=== PATIENT | male | born 1940 | race Caucasian/White ===

== ENCOUNTER 2017-08-06 11:50 | Emergency (ER) | payer MEDICARE ==
[2017-08-06 13:41] LABS: #Eosinphils 0.1 thou/uL (0.0-0.7); #Lymphocytes 1.7 thou/uL (1.20-3.40); #Monocytes 0.4 thou/uL (0.11-0.59); #Neutrophils 2.6 thou/uL (1.40-6.50); %Basophils 0.3 % (0.0-1.0); %Eosinophils 1.6 % (0.0-10.0); %Lymphocytes 35.3 % (21.0-51.0); %Monocytes 9.1 % (0.0-10.0); %Neutrophils 53.7 % (42.0-75.0); Hemoglobin 16.6 g/dL (14.0-18.0); Mean Corpuscular HGB CONC 33.4 g/dL (32.0-36.0); Mean Corpuscular Hemoglobin 31.8 pg (27.0-31.0); Mean Corpuscular Volume 95.5 fl (80.0-94.0); Mean Platelet Volume 6.8 fL (7.4-10.4); Platelet Count 178 thou/uL (130-400); Red Blood Cell (RBC) Count 5.21 mill/uL (4.70-6.10); White Blood Cell (WBC) Count 4.8 thou/uL (4.8-10.8)
--- NOTE | 2017-08-06 13:44 | ULT ---
RIGHT LOWER EXTREMITY VENOUS ULTRASOUND WITH DOPPLER: Date: 08/06/17 HISTORY: Right lower extremity pain and edema. COMPARISON: None. TECHNIQUE: Mcleod scale, color flow, Doppler imaging, and spectral waveform analysis performed of the right lower extremity venous system. FINDINGS: There is compressibility, presence of flow, and augmentation in the common femoral vein, femoral vein , and popliteal vein. There is flow in the greater saphenous vein, profunda vein, and posterior tibia l vein. There is a mild amount of edema involving the soft tissues at the level of the ankle. IMPRESSION: 1. No evidence of thrombus in the right lower extremity deep venous system. 2. Soft tissue edema. POS: [facility]
[2017-08-06 13:49] LABS: Anion Gap 15 mmol/L (10-20); BUN (Urea Nitrogen) 15 mg/dL (8.4-25.7); Calc. Creatinine Clearance 0 mL/min (70-130); Calcium 9.6 mg/dL (7.8-10.44); Carbon Dioxide 26 mmol/L (23-31); Chloride 101 mmol/L (98-107); Estimated GFR-MDRD 76; Glucose 133 mg/dL (83-110); Potassium 3.6 mmol/L (3.5-5.1); Sodium 138 mmol/L (136-145)
--- NOTE | 2017-08-17 15:51 | EKG ---
Test Reason : Blood Pressure : / mmHG Vent. Rate : 077 BPM Atrial Rate : 076 BPM P-R Int : 194 ms QRS Dur : 086 ms QT Int : 374 ms P-R-T Axes : 000 -13 202 degrees QTc Int : 423 ms Undetermined rhythm T wave abnormality, consider anterolateral ischemia Abnormal ECG Confirmed by MICHAEL MCKEON, AZEEM ([id number]), slot editor ABDIEL ROBB ([id number] on 08/17/2017 3:49:26 PM Referred By: Confirmed By:AZEEM RODRIGUEZ MD
== END 2017-08-06 14:58 | disposition home or self-care (01) ==
LOC: ERS 11:50
DX: L03.115 Cellulitis of right lower limb (principal); I25.2 Old myocardial infarction; E78.5 Hyperlipidemia, unspecified; I10 Essential (primary) hypertension; Z86.73 Personal history of transient ischemic attack (TIA), and cerebral infarction without residual deficits; F41.9 Anxiety disorder, unspecified
CPT/HCPCS: 80048; 85025; 85379; 93005

== ENCOUNTER 2017-12-23 08:52 | Outpatient (CLI) | payer MEDICARE ==
--- NOTE | 2017-12-23 10:29 | ULT ---
SONOGRAM RIGHT UPPER QUADRANT: History: Abnormal liver function tests. FINDINGS: Gallbladder is surgically absent. Common duct is 0.7 cm. Liver is heterogeneous without focal mass or intrahepatic biliary dilation. No free fluid. IMPRESSION: Status post cholecystectomy. No evidence of acute biliary obstruction. No significant abnormalities a re demonstrated. POS: [facility]
== END 2017-12-23 08:53 | disposition home or self-care (01) ==
LOC: SCSULT 08:52
PROVIDERS: ATTEND Family Medicine
DX: R74.8 Abnormal levels of other serum enzymes (principal); Z90.49 Acquired absence of other specified parts of digestive tract
CPT/HCPCS: 76705

== ENCOUNTER 2018-12-06 13:16 | Observation (INO) | payer MEDICARE ==
[2018-12-06] MEDS ORDERED: Nitroglycerin 2% Ointment 1 INCH/1 GM Packet ONE (13:45)
--- NOTE | 2018-12-06 13:50 | RAD ---
EXAM: Single view of the chest HISTORY: Chest pain COMPARISON: 06/05/2016 FINDINGS: Single view of the chest shows a normal sized cardiomediastinal silhouette. There is stabl e elevation of the right hemidiaphragm. There is no evidence of consolidation, mass, or pleural effusion. Degenerative changes are seen in the spine. IMPRESSION: No evidence of acute cardiopulmonary disease
[2018-12-06 13:52] LABS: #Eosinphils 0.1 thou/uL (0.0-0.7); #Lymphocytes 2.3 thou/uL (1.20-3.40); #Monocytes 0.5 thou/uL (0.11-0.59); %Basophils 0.5 % (0.0-1.0); %Eosinophils 1.9 % (0.0-10.0); %Monocytes 7.8 % (0.0-10.0); %Neutrophils 50.9 % (42.0-75.0); Hemoglobin 17.5 g/dL (14.0-18.0); Mean Corpuscular HGB CONC 33.5 g/dL (32.0-36.0); Mean Corpuscular Hemoglobin 32.4 pg (27.0-31.0); Mean Corpuscular Volume 96.8 fL (78.0-98.0); Mean Platelet Volume 6.6 fL (7.4-10.4); Platelet Count 182 thou/uL (130-400); RBC Distribution Width 12.7 % (11.5-14.5); Red Blood Cell (RBC) Count 5.38 mill/uL (4.70-6.10); White Blood Cell (WBC) Count 5.8 thou/uL (4.8-10.8)
[2018-12-06 14:15] LABS: ALT (SGPT) 17 U/L (8-55); AST (SGOT) 24 U/L (5-34); Albumin 4.3 g/dL (3.4-4.8); Alkaline Phosphatase 87 U/L (40-150); Anion Gap 15 mmol/L (10-20); BUN (Urea Nitrogen) 12 mg/dL (8.4-25.7); Bilirubin, Total 1.2 mg/dL (0.2-1.2); CK (CPK) 311 U/L (30-200); Calc. Creatinine Clearance 0 mL/min (70-130); Calcium 10.2 mg/dL (7.8-10.44); Carbon Dioxide 28 mmol/L (23-31); Chloride 97 mmol/L (98-107); Estimated GFR-MDRD 87; Globulin 3.5 g/dL (2.4-3.5); Glucose 113 mg/dL (83-110); Lipase 63 U/L (8-78); Potassium 3.3 mmol/L (3.5-5.1); Protein, Total 7.8 g/dL (5.8-8.1); Sodium 137 mmol/L (136-145)
--- NOTE | 2018-12-06 14:42 | PDOC.FPRHP ---
- History of Present Illness Chief Complaint: Chest pain History of Present Illness: This is a 78 yo male with a pmh of CAD with stents placed, HTN, HLD, CVA in 2018 , hypothyroidism who presents to the er with a cc of chest pain. He states the pain started earlier today when he was working and was relieved by nitro. He also took aspirin 325mg RESPOOLER. Pt states the pain was epigastic pain with out radiation. He states it is an ache. He rates it as a 5/10 and is currently relived by nitro. He denies SOB, diaphoresis, nausea, or vomiting. In regards to his elevated BP, he denies any headaches or changes in his vision. In regards to his CVA in 2018, he reports minimal residual issue. ED Course: Nitro paste Hydralazine 20 mg - Allergies/Adverse Reactions Allergies Allergy/AdvReac Type Severity Reaction Status Date / Time No Known Drug Allergies Allergy Verified 12/07/18 00:07 - Home Medications Medication Instructions Recorded Confirmed Type ALPRAZolam [Xanax] 1 mg PO BID 06/05/16 12/07/18 History Amlodipine Besylate [amLODIPine 10 mg PO DAILY 06/05/16 12/07/18 History Besylate] Hydrochlorothiazide 25 mg PO DAILY 06/05/16 12/06/18 History Hydrocodone Bit/Acetaminophen 1 tablet PO QID PRN 06/05/16 12/07/18 History [HYDROcodone Bit/Acetaminophen] Levothyroxine Sodium [Synthroid] 50 mcg PO DAILY 06/05/16 12/07/18 History Aspirin Chewable [Aspirin Chewable 81 mg PO QAM #30 tab 06/09/16 12/07/18 Rx Tablet] Atorvastatin Calcium [Lipitor] 40 mg PO HS #30 tab 06/10/16 12/06/18 Rx Carisoprodol 350 mg PO QID PRN 12/06/18 12/07/18 History Isosorbide Mononitrate [Imdur ER] 30 mg PO DAILY 12/06/18 12/07/18 History Omeprazole 40 mg PO DAILY 12/06/18 12/07/18 History Potassium Chloride [K-Dur] 20 meq PO DAILY 12/06/18 12/07/18 History Sertraline HCl 100 mg PO DAILY 12/06/18 12/06/18 History Tamsulosin HCl [Flomax] 0.4 mg PO HS 12/06/18 12/06/18 History hydrALAZINE [Apresoline] 50 mg PO TID 12/06/18 12/07/18 History Lisinopril [Zestril] 5 mg PO DAILY #30 tab 12/07/18 Rx - History PMHx:CAD, HTN, CVA PSHx: Endarterectomy, 3 stents placed in the past, appendecotmy, cholecystecotmy FHx: Non contributory Social: Denies MATILDA - Review of Systems General: denies: fever/chills, weight/appetite/sleep changes Eyes: denies: eye pain, vision changes ENT: denies: nasal congestion, rhinorrhea Respiratory: denies: cough, shortness of breath Cardiovascular: reports: chest pain. denies: palpitation, edema Gastrointestinal: reports: other (belching). denies: nausea, vomiting, diarrhea , constipation, abdominal pain Genitourinary: denies: incontinence, dysuria Skin: denies: rashes, lesions Musculoskeletal: reports: pain (low back pain, chronic) Neurological: denies: numbness, syncope Psychological: denies: anxiety, depression - Vital signs BP: 183/64 HR: 67 RR: 21 Tmax: 98.1 Pox: 97% on ra Wt: 76 kg - Physical Exam Constitutional: NAD, awake, alert and oriented, well developed HEENT: normocephalic and atraumatic, EOMI, MMM Neck: FROM, no JVD Chest: no-tender to palpation Heart: RRR, normal S1/S2, no murmurs/rubs/gallops, pulses present Lungs: CTAB, no respiratory distress, good air movement, no wheezing Abdomen: soft, non-tender, bowel sounds present, no masses/distention Musculoskeletal: normal structure, normal tone, ROM grossly normal Skin: no rash/lesions, good turgor Heme/Lymphatic: no unusual bruising or bleeding, no purpura Psychiatric: normal mood and affect, good judgment and insight, intact recent and remote memory FMR H&P: Results - Labs Result Diagrams: 12/06/18 13:42 12/07/18 05:52 Lab results: WBC 5.8 thou/uL (4.8-10.8) 12/06/18 13:42 Hgb 17.5 g/dL (14.0-18.0) 12/06/18 13:42 Hct 52.1 % (42.0-52.0) H 12/06/18 13:42 MCV 96.8 fL (78.0-98.0) 12/06/18 13:42 Plt Count 182 thou/uL (130-400) 12/06/18 13:42 Neutrophils % 50.9 % (42.0-75.0) 12/06/18 13:42 Sodium 137 mmol/L (136-145) 12/06/18 13:42 Potassium 3.3 mmol/L (3.5-5.1) L 12/06/18 13:42 Chloride 97 mmol/L (98-107) L 12/06/18 13:42 Carbon Dioxide 28 mmol/L (23-31) 12/06/18 13:42 BUN 12 mg/dL (8.4-25.7) 12/06/18 13:42 Creatinine 0.85 mg/dL (0.7-1.3) 12/06/18 13:42 Glucose 113 mg/dL (83-110) H 12/06/18 13:42 Calcium 10.2 mg/dL (7.8-10.44) 12/06/18 13:42 Total Bilirubin 1.2 mg/dL (0.2-1.2) 12/06/18 13:42 AST 24 U/L (5-34) 12/06/18 13:42 ALT 17 U/L (8-55) 12/06/18 13:42 Alkaline Phosphatase 87 U/L (40-150) 12/06/18 13:42 Creatine Kinase 311 U/L (30-200) H 12/06/18 13:42 Serum Total Protein 7.8 g/dL (5.8-8.1) 12/06/18 13:42 Albumin 4.3 g/dL (3.4-4.8) 12/06/18 13:42 Lipase 63 U/L (8-78) 12/06/18 13:42 - EKG Interpretation EKG: NSR, frequent PVCs, no st depression or elevation, HR 83 QT/QTc 396/465 - Radiology Interpretation Chest x-ray Status: report reviewed by me (No evidence of acute cardiopulmonary disease) FMR H&P: A/P - Problem List (1) Atypical chest pain Current Visit: Yes Status: Acute Code(s): R07.89 - OTHER CHEST PAIN (2) Hypertension Current Visit: No Status: Acute Code(s): I10 - ESSENTIAL (PRIMARY) HYPERTENSION Qualifiers: Hypertension type: essential hypertension Qualified Code(s): I10 - Essential (primary) hypertension (3) Anxiety disorder Current Visit: No Status: Chronic Code(s): F41.9 - ANXIETY DISORDER, UNSPECIFIED (4) Chronic back pain Current Visit: No Status: Chronic Code(s): M54.9 - DORSALGIA, UNSPECIFIED; G89.29 - OTHER CHRONIC PAIN (5) Hyperlipemia Current Visit: No Status: Chronic Code(s): E78.5 - HYPERLIPIDEMIA, UNSPECIFIED Qualifiers: Hyperlipidemia type: unspecified Qualified Code(s): E78.5 - Hyperlipidemia , unspecified (6) Hypothyroidism Current Visit: No Status: Chronic Code(s): E03.9 - HYPOTHYROIDISM, UNSPECIFIED - Plan This is a 78 yo male with a pmh of HTN, CAD s/p 3 stents, hypothyroidism, chronic back pain Atypical chest pain, ACS r/o, likely GERD -Admit to tele obs -Heart score of 5 -Nitro PRN -Negative troponin and CXR -Pending AM stress test and trended troponins HTN -Continue home meds -PRN hydralazine -Consider increasing home meds or adding lisinopril if uncontrolled -Consider adding coreg after stress test if needed Hypokalemia -Replace, monitor with AM BMP Hypothyroidism -Continue home meds -TSH 1.16 Chronic low back pain -Continue home meds CAD -Continue home statin -Continue ASA Code: Full Prophylaxis: SCDs Fluids: none Diet: HH, NPO at midnight Disposition: DC in 1-2 days PCP: Dr. Patton Addendum - Attending - Attending Attestation Date/Time: 12/07/18 2906 I personally evaluated the patient and discussed the management with Dr. Contreras yesterday afternoon. I agree with the History, Examination, Assessment and Plan documented above with any addition or exceptions noted below.
[2018-12-06] MEDS ORDERED: hydrALAZINE 20 MG/ML VIAL ONE (14:50)
[2018-12-06] MEDS ORDERED: ALPRAZolam 1 MG TAB PO PRN (16:45)
[2018-12-06 17:19] LABS: Troponin I Less than 0.010 ng/mL (< 0.028)
[2018-12-06] MEDS ORDERED: Ondansetron PF 4 MG/2 ML Vial IVP PRN (18:50)
[2018-12-06] MEDS ORDERED: Ondansetron ODT 4 MG TAB SL PRN (18:50)
[2018-12-06 19:01] VITALS: BMI 24.5
[2018-12-06] MEDS ORDERED: Acetaminophen 325 MG TAB PO PRN (19:34)
[2018-12-06] MEDS ORDERED: Nitroglycerin 0.4 MG TAB (25 Tab Bottle) PO PRN (19:34)
[2018-12-06] MEDS ORDERED: hydrALAZINE 20 MG/ML VIAL SLOW IVP PRN (19:34)
[2018-12-06] MEDS ORDERED: Ondansetron ODT 4 MG TAB PO PRN (19:34)
[2018-12-06] MEDS ORDERED: Potassium Chloride 20 MEQ TAB PO SCH (19:45)
[2018-12-06] MEDS: Famotidine 20 MG TAB PO SCH (20:20)
[2018-12-06] MEDS ORDERED: Atorvastatin Calcium 40 MG TAB PO SCH (21:00)
[2018-12-06] MEDS: HYDROcodone/Acetaminophen 10/325 mg Tablet PO PRN (22:13)
[2018-12-07] MEDS ORDERED: Levothyroxine Sodium 50 MCG TAB PO SCH (06:00)
[2018-12-07 06:20] LABS: Anion Gap 10 mmol/L (10-20); BUN (Urea Nitrogen) 11 mg/dL (8.4-25.7); Calc. Creatinine Clearance 87 mL/min (70-130); Calcium 9.8 mg/dL (7.8-10.44); Carbon Dioxide 29 mmol/L (23-31); Chloride 101 mmol/L (98-107); Estimated GFR-MDRD Greater than 90; Glucose 98 mg/dL (83-110); Potassium 3.6 mmol/L (3.5-5.1); Sodium 136 mmol/L (136-145)
--- NOTE | 2018-12-07 06:39 | PDOC.FM ---
- Subjective Subjective: No chest pain this morning. Pt denies other complaints. He is concerned how high his blood pressure has been. - Objective MAR Reviewed: Yes Vital Signs & Weight: Vital Signs (12 hours) Temp Pulse Resp BP BP Pulse Ox 12/07/18 04:00 98.1 F 56 L 17 178/84 H 93 L 12/07/18 00:09 62 138/70 12/06/18 23:09 98.0 F 90 16 192/88 H 96 Weight Weight 77.383 kg Result Diagrams: 12/06/18 13:42 12/07/18 05:52 Phys Exam - Physical Examination Constitutional: NAD HEENT: moist MMs Neck: no JVD Respiratory: no wheezing, clear to auscultation bilateral Cardiovascular: RRR, no significant murmur Gastrointestinal: soft, non-tender Musculoskeletal: no edema, pulses present Neurological: moves all 4 limbs Psychiatric: A&O x 3 Skin: cap refill <2 seconds Dx/Plan (1) Atypical chest pain Code(s): R07.89 - OTHER CHEST PAIN Status: Acute (2) Hypertension Code(s): I10 - ESSENTIAL (PRIMARY) HYPERTENSION Status: Acute Qualifiers: Hypertension type: essential hypertension Qualified Code(s): I10 - Essential (primary) hypertension (3) Anxiety disorder Code(s): F41.9 - ANXIETY DISORDER, UNSPECIFIED Status: Chronic (4) Chronic back pain Code(s): M54.9 - DORSALGIA, UNSPECIFIED; G89.29 - OTHER CHRONIC PAIN Status: Chronic (5) Hyperlipemia Code(s): E78.5 - HYPERLIPIDEMIA, UNSPECIFIED Status: Chronic Qualifiers: Hyperlipidemia type: unspecified Qualified Code(s): E78.5 - Hyperlipidemia , unspecified (6) Hypothyroidism Code(s): E03.9 - HYPOTHYROIDISM, UNSPECIFIED Status: Chronic - Plan Plan: This is a 78 yo male with a pmh of HTN, CAD s/p 3 stents, hypothyroidism, chronic back pain Atypical chest pain, ACS r/o, likely GERD -Admit to tele obs -Heart score of 5 -Nitro PRN -Negative troponins x 3 and CXR -Pending AM stress test HTN -Continue home meds -PRN hydralazine -Adding lisinopril, can be adjusted outpt Hypokalemia, resolved Hypothyroidism -Continue home meds -TSH 1.16 Chronic low back pain -Continue home meds CAD -Continue home statin -Continue ASA Addendum - Attending - Attending Attestation Date/Time: 12/07/18 1233 I personally evaluated the patient and discussed the management with Dr. Contreras. I agree with the History, Examination, Assessment and Plan documented above with any addition or exceptions noted below. Pt's chest pain is improved. Getting a stress test today to evaluate for ischemia.
[2018-12-07] MEDS: Potassium Chloride 20 MEQ TAB PO SCH ×2 (08:25→15:54)
[2018-12-07] MEDS: Famotidine 20 MG TAB PO SCH (08:26)
[2018-12-07] MEDS ORDERED: Amlodipine 10 MG TAB PO SCH (09:00)
[2018-12-07] MEDS ORDERED: Aspirin Chewable 81 MG TAB PO SCH (09:00)
[2018-12-07] MEDS ORDERED: Hydrochlorothiazide 25 MG TAB PO SCH ×2 (09:00→17:15)
[2018-12-07] MEDS ORDERED: Lisinopril 5 MG TAB PO SCH (09:00)
[2018-12-07] MEDS: HYDROcodone/Acetaminophen 10/325 mg Tablet PO PRN (12:04)
--- NOTE | 2018-12-07 12:10 | NM ---
RADIONUCLEOTIDE STRESS AND REST MYOCARDIAL PERFUSION SCAN WITH CT ATTENUATION CORRECTION AND SPECT IM AGING LEFT VENTRICULAR WALL MOTION EVALUATION AND EJECTION FRACTION. HISTORY: Chest pain. FINDINGS: Lexiscan protocol. Heterogeneous uptake of radiotracer throughout the left ventricular myoc ardium. Diaphragmatic attenuation. Thinning of the apex with possible small area of scar. No evidence of reversibility. QGS analysis of gated SPECT images shows global hypokinesis without focal wall motion abnormality. Ej ection fraction calculated at 38%. IMPRESSION: Probably normal myocardial perfusion scan showing no reliable evidence of ischemia. Global hypokinesis with depressed ejection fraction of 38%.
[2018-12-07] MEDS ORDERED: Regadenoson 0.4 MG/5 ML SYRINGE ONE (15:29)
[2018-12-07 15:46] VITALS: TEMP 98
--- NOTE | 2018-12-07 16:54 | CON ---
DATE OF CONSULTATION: REASON FOR CONSULTATION: Atypical chest pain and history of CAD. HISTORY OF PRESENT ILLNESS: Mr. Garza is a 78-year-old gentleman, who is a patient of Dr. Whiting. He recently presented with pain in his lower chest, upper abdomen. It was worse with deep breathe. It was dull in nature. No other ameliorating, exacerbating, or precipitating factors present. He states he took nitroglycerin without relief. He presented to the emergency room and was given a concoction of several medications. It slowly then dissipated. Again, he did state it was worse with taking a deep breathe. He has a previous history of underlying coronary artery disease with stents x3 placed in [place] in 2004. PAST MEDICAL HISTORY: 1. CAD. 2. CVA. 3. Hypertension. 4. Carotid endarterectomy. 5. Appendectomy. 6. Cholecystectomy. SOCIAL HISTORY: No current tobacco or alcohol use. FAMILY HISTORY: Negative. REVIEW OF SYSTEMS: A 10-point review of systems is reviewed as above, otherwise negative. PHYSICAL EXAMINATION: VITAL SIGNS: Blood pressure 160/73, pulse 56, temperature 98.3. GENERAL: Patient is a pleasant male, who is in no acute distress. The patient appears their stated age. NEUROLOGIC: The patient is alert and oriented x3 with no focal neurologic deficits. HEENT: Sclerae without icterus. Mouth has moist mucous membranes with normal pallor. NECK: No JVD. Carotid upstroke brisk. No bruits bilaterally. LUNGS: Clear to auscultation with unlabored respirations. BACK: No scoliosis or kyphosis. CARDIAC: Regular rate and rhythm with normal S1 and S2. No S3 or S4 noted. No significant rubs, murmurs, thrills, or gallops noted throughout the precordium. PMI is not displaced. There is no parasternal heave. ABDOMEN: Soft, nontender, nondistended. No peritoneal signs present. No hepatosplenomegaly. No abnormal striae. EXTREMITIES: 2+ femoral and 2+ dorsalis pedis pulses. No cyanosis, clubbing, or edema. SKIN: No gross abnormalities. PERTINENT LABORATORY DATA: Hemoglobin 17.5, hematocrit 52.1. CK troponin negative. Stress and rest myocardial perfusion study; no ischemia present. LVEF 38%. PVCs present during the study. IMPRESSION: 1. Atypical chest pain. 2. Coronary artery disease. 3. Status post stent placement. 4. Hypertension. RECOMMENDATIONS: Mr. Garza's recent stress study did not suggest significant ischemia. There were PVCs during the study, that likely underestimate his overall LVEF. I did discuss procedure, coronary angiography versus medical therapy. I would recommend medical therapy at this point. He agrees. He is not interested in proceeding with angio. I would recommend increasing amlodipine to 10 mg q.a.m. Continue aspirin, atorvastatin. We will also consider increasing lisinopril as an outpatient. Otherwise, once his blood pressure is controlled, would be okay from my standpoint to discharge home with close outpatient followup. Job ID: [id number]
[2018-12-07 17:10] VITALS: BP 138/67
[2018-12-08] MEDS ORDERED: Hydrochlorothiazide 25 MG TAB PO SCH (09:00)
--- NOTE | 2018-12-08 13:03 | DIS ---
DATE OF ADMISSION: 12/06/2018 DATE OF DISCHARGE: 12/07/2018 ADMITTING ATTENDING: Ish Forde MD DISCHARGE ATTENDING: Karina Nevarez MD RESIDENT: Oziel Contreras DO PROCEDURES: 1. Chest x-ray showing no evidence of acute cardiopulmonary disease. 2. Cardiac stress test: Probably normal myocardial perfusion scan with no reliable evidence of ischemia, global hypokinesis with ejection fraction of 38%. CONSULTS: Dr. Rehan Anderson, Cardiology. PRIMARY DIAGNOSES: 1. Chest pain related to gastroesophageal reflux disease. 2. Hypokalemia and hypothyroidism. SECONDARY DIAGNOSES: coronary artery disease. DISCHARGE MEDICATIONS: 1. Lisinopril 10 mg p.o. . 2. Amlodipine 10 mg p.o. daily. 3. Aspirin 81 mg p.o. daily. 4. Atorvastatin 40 mg p.o. at bedtime. 5. Carisoprodol 350 mg p.o. q.i.d. 6. . 7. Hydrochlorothiazide 25 mg p.o. daily. 8. [place] 10 one tablet p.o. q.i.d. 9. Isosorbide mononitrate 10 mg p.o. daily. 10. Levothyroxine 50 mcg p.o. daily. 11. Omeprazole 40 mg p.o. daily. 12. . DISCONTINUED MEDICATIONS: None. BRIEF HISTORY OF PRESENT ILLNESS/HOSPITAL COURSE: This is a 78-year-old male with past medical history as above, who presents with chest pain. States the pain started earlier today when he was working and was relieved with nitro. The patient states that the pain is epigastric without radiation, describes it as an ache, states it is a 5/10 and is currently relieved by nitroglycerin. He denies shortness of breath . The patient was admitted to the hospital. Troponins were trended and found to be negative x3 performed as stated above. Given the global hypokinesia, Cardiology was consulted. Discussed the case with Dr. Rehan Anderson. The patient reported multiple PVCs during the stress test, obscuring the healthy function. Dr. Anderson reports the patient will be free to go if the blood pressure is controlled with further evaluation if needed. The patient's blood pressure was well controlled on admission later on. The patient required multiple doses of hydralazine IV in order to control this. Lisinopril 5 mg p.o. daily was added and hydrochlorothiazide was made b.i.d. prior to discharge. DISPOSITION: Stable. DISCHARGE INSTRUCTIONS: 1. Location: Home. 2. Diet: Heart healthy. 3. Activity: As tolerated. 4. Followup: Followup with Dr. Anderson in in 1 to 2 weeks. Job ID: [id number]
== END 2018-12-07 19:51 | disposition home or self-care (01) ==
LOC: ERS 13:16 → ERHOLD 15:03 → 2SW 18:51
PROVIDERS: ADMIT Family Medicine; ATTEND Family Medicine
DX: R07.89 Other chest pain (principal); I25.10 Atherosclerotic heart disease of native coronary artery without angina pectoris; E78.5 Hyperlipidemia, unspecified; I10 Essential (primary) hypertension; E03.9 Hypothyroidism, unspecified; F41.9 Anxiety disorder, unspecified; G89.29 Other chronic pain; M54.5 Low back pain; E87.6 Hypokalemia; I25.2 Old myocardial infarction; F32.9 Major depressive disorder, single episode, unspecified; Z86.73 Personal history of transient ischemic attack (TIA), and cerebral infarction without residual deficits; Z79.82 Long term (current) use of aspirin; Z79.899 Other long term (current) drug therapy; Z95.5 Presence of coronary angioplasty implant and graft; Z98.890 Other specified postprocedural states
CPT/HCPCS: 71045; 78452; 80048; 82550; 83690; 84484 ×2; 93005; 93017; 94760 ×2; 96374; 96376; 97139; 99285; A9500; G0378 ×3; 36415; 80053; 84443; 85025; J0360; J2785

== ENCOUNTER 2019-05-23 13:24 | Outpatient (CLI) | payer MEDICARE ==
--- NOTE | 2019-05-23 13:53 | ULT ---
THYROID ULTRASOUND: HISTORY: Thyroid nodule. COMPARISON: None. FINDINGS: Thyroid isthmus measures 0.35 cm. Right thyroid lobe measures 1.5 x 4.4 x 1.7 cm. Left thyroid lobe measures 1.2 x 4.6 x 1.3 cm. Complex nodule in the upper pole of the right thyroid lobe measures 0.4 x 0.5 x 0.6 cm. Peripherally calcified nodule in the mid pole of the right thyroid lobe measures 0.4 x 0.4 x 0.5 cm. Solid nodule in the inferior aspect of the right thyroid lobe, near the thyroid isthmus, measures 1.1 x 0.7 x 1.0 cm. Solid nodule in the medial mid left thyroid lobe measures 0.4 x 0.3 x 0.5 cm. IMPRESSION: TI-RADS category4, moderately suspicious. RECOMMENDATION: Follow-up imaging in one year. Transcribed Date/Time: 05/23/2019 2:28 PM
== END 2019-05-23 13:25 | disposition home or self-care (01) ==
LOC: BICULT 13:24
PROVIDERS: ATTEND Internal Medicine Cardiovascular Disease
DX: E04.1 Nontoxic single thyroid nodule (principal)
CPT/HCPCS: 76536

== ENCOUNTER 2020-07-28 09:04 | Outpatient (CLI) | payer MEDICARE | END 2020-07-28 09:05 | disposition home or self-care (01) | LOC: BICULT 09:04 | PROVIDERS: ATTEND Family Medicine | DX: R79.89 Other specified abnormal findings of blood chemistry (principal) | CPT/HCPCS: 76705 ==

== ENCOUNTER 2021-06-09 14:59 | Outpatient (CLI) | payer MEDICARE | END 2021-06-09 15:00 | disposition home or self-care (01) | LOC: BICRAD 14:59 | PROVIDERS: ATTEND Family Medicine | DX: R79.89 Other specified abnormal findings of blood chemistry (principal) | CPT/HCPCS: 77075 ==

== ENCOUNTER 2022-04-19 10:36 | Inpatient (IN) | payer MEDICARE ==
[2022-04-19 11:04] LABS: #Lymphocytes 1.1 thou/uL (1.20-3.40); #Monocytes 0.7 thou/uL (0.11-0.59); #Neutrophils 7.9 thou/uL (1.40-6.50); %Eosinophils 0.1 % (0.0-10.0); %Lymphocytes 11.2 % (21.0-51.0); %Monocytes 7.3 % (0.0-10.0); %Neutrophils 81.5 % (42.0-75.0); Hemoglobin 14.2 g/dL (14.0-18.0); Mean Corpuscular HGB CONC 33.1 g/dL (32.0-36.0); Mean Corpuscular Hemoglobin 32.9 pg (27.0-31.0); Mean Corpuscular Volume 99.3 fl (78.0-98.0); Mean Platelet Volume 7.2 fL (7.4-10.4); Platelet Count 191 10x3/uL (130-400); RBC Distribution Width 13.6 % (11.5-14.5); Red Blood Cell (RBC) Count 4.32 mill/uL (4.70-6.10); White Blood Cell (WBC) Count 9.7 10x3/uL (4.8-10.8)
[2022-04-19 11:14] LABS: PTT 39.7 sec (22.9-36.1); Prothrombin Time 15.3 sec (12.0-14.7)
[2022-04-19 11:18] LABS: INR-International Normal Ratio 1.2
[2022-04-19 11:21] LABS: ALT (SGPT) 56 U/L (8-55); AST (SGOT) 106 U/L (5-34); Albumin 2.9 g/dL (3.4-4.8); Alkaline Phosphatase 514 U/L (40-110); Anion Gap 12 mmol/L (10-20); BUN (Urea Nitrogen) 21 mg/dL (8.4-25.7); Bilirubin, Total 5.7 mg/dL (0.2-1.2); Calc. Creatinine Clearance 0 mL/min (70-130); Calcium 8.5 mg/dL (7.8-10.44); Carbon Dioxide 26 mmol/L (23-31); Chloride 98 mmol/L (98-107); Estimated GFR 80; Glucose 114 mg/dL (83-110); Potassium 3.7 mmol/L (3.5-5.1); Protein, Total 6.9 g/dL (5.8-8.1); Sodium 132 mmol/L (136-145)
[2022-04-19 12:24] LABS: CKMB 4.1 ng/mL (0-6.6)
[2022-04-19 14:00] LABS: SARS-CoV-2 NAA Rapid Test Not Detected (NotDetected)
[2022-04-19 14:38] LABS: Bacteria/HPF None Seen HPF (None Seen); Bilirubin 1+ (Negative); Blood, Urine 3+ (Negative); Clarity Clear (Clear); Glucose, Urine (Dipstick) Normal (Negative); Ketone, Urine Negative (Negative); Leukocyte Negative Leu/uL (Negative); Nitrite Negative (Negative); Protein, Urine (Dipstick) 30 mg/dL (Neg-Trace); Squamous Epithelial 0-3 HPF (0-3); pH, Urine 6.5 (5.0-9.0)
[2022-04-19 14:44] LABS: Specific Gravity, Urine Greater than 1.060 (1.002-1.036)
[2022-04-19 14:47] LABS: RBC/HPF 0-3 HPF (0-3)
[2022-04-19] MEDS ORDERED: Iopamidol-370 76% 500 ML 1 ML ONE ×2 (15:58→16:01)
[2022-04-19 16:03] VITALS: BMI 23.6
[2022-04-19 16:12] LABS: Troponin I 0.081 ng/mL (< 0.028)
[2022-04-19] MEDS ORDERED: HYDROcodone/Acetaminophen 10/325 mg Tablet PO PRN (16:31)
[2022-04-19] MEDS ORDERED: hydrALAZINE 20 MG/ML VIAL SLOW IVP PRN (16:53)
[2022-04-19] MEDS ORDERED: HYDROcodone/Acetaminophen 10/325 mg Tablet ONE (17:43)
[2022-04-19] MEDS ORDERED: ALPRAZolam 0.5 MG TAB ONE (20:44)
[2022-04-19] MEDS: Lactated Ringer's 1,000 ML IV SCH (20:56)
[2022-04-19] MEDS ORDERED: ALPRAZolam 1 MG TAB PO SCH (21:00)
[2022-04-20] MEDS: Lactated Ringer's 1,000 ML IV SCH ×2 (03:45→13:29)
[2022-04-20 07:13] LABS: #Monocytes 0.6 thou/uL (0.11-0.59); #Neutrophils 6.1 thou/uL (1.40-6.50); %Basophils 0.1 % (0.0-1.0); %Eosinophils 0.3 % (0.0-10.0); %Lymphocytes 13.2 % (21.0-51.0); %Monocytes 7.5 % (0.0-10.0); Hemoglobin 14.6 g/dL (14.0-18.0); Mean Corpuscular HGB CONC 31.9 g/dL (32.0-36.0); Mean Corpuscular Hemoglobin 32.5 pg (27.0-31.0); Mean Platelet Volume 7.1 fL (7.4-10.4); Platelet Count 178 10x3/uL (130-400); RBC Distribution Width 13.5 % (11.5-14.5); Red Blood Cell (RBC) Count 4.49 mill/uL (4.70-6.10); White Blood Cell (WBC) Count 7.7 10x3/uL (4.8-10.8)
[2022-04-20 07:35] LABS: ALT (SGPT) 51 U/L (8-55); AST (SGOT) 126 U/L (5-34); Albumin 2.9 g/dL (3.4-4.8); Alkaline Phosphatase 469 U/L (40-110); Anion Gap 12 mmol/L (10-20); BUN (Urea Nitrogen) 19 mg/dL (8.4-25.7); Bilirubin, Total 6.7 mg/dL (0.2-1.2); Calc. Creatinine Clearance 70 mL/min (70-130); Calcium 8.9 mg/dL (7.8-10.44); Carbon Dioxide 28 mmol/L (23-31); Chloride 100 mmol/L (98-107); Estimated GFR 86; Globulin 3.9 g/dL (2.4-3.5); Glucose 92 mg/dL (83-110); Potassium 4.2 mmol/L (3.5-5.1); Protein, Total 6.8 g/dL (5.8-8.1); Sodium 136 mmol/L (136-145)
[2022-04-20] MEDS ORDERED: Sertraline 100 MG TAB PO SCH (09:00)
[2022-04-20] MEDS ORDERED: Enoxaparin Sodium 40 MG/0.4 ML SYRINGE SC SCH (09:00)
[2022-04-20] MEDS ORDERED: HYDROcodone/Acetaminophen 10/325 mg Tablet ONE (09:20)
[2022-04-20] MEDS: Amlodipine 10 MG TAB PO SCH (09:25)
[2022-04-20] MEDS: Sertraline 100 MG TAB PO SCH (09:26)
[2022-04-20] MEDS: Donepezil HCl 10 MG TAB PO SCH (09:27)
[2022-04-20] MEDS: Hydrochlorothiazide 25 MG TAB PO SCH (09:29)
[2022-04-20] MEDS: Lisinopril 5 MG TAB PO SCH (09:29)
[2022-04-20] MEDS ORDERED: Ibuprofen 200 MG TAB ONE (09:33)
[2022-04-20] MEDS ORDERED: Ibuprofen 200 MG TAB PO SCH (09:38)
[2022-04-20] MEDS: HYDROcodone/Acetaminophen 10/325 mg Tablet PO PRN ×2 (10:00→22:36)
[2022-04-20] MEDS: hydrALAZINE 25 MG TAB PO SCH ×3 (11:55→22:46)
[2022-04-20] MEDS ORDERED: VANCOMYCIN 1.75 GM/500 ML BAG 1.75 GM in Premix Bag 1 BAG IVPB SCH (13:00)
[2022-04-20] MEDS ORDERED: Cefepime 2 GM VIAL ONE (13:04)
[2022-04-20] MEDS: Cefepime 2 GM in Sodium Chloride 0.9% 100 ML IVPB SCH (13:12)
[2022-04-20] MEDS: ALPRAZolam 1 MG TAB PO SCH (22:45)
[2022-04-20] MEDS: Tamsulosin HCl 0.4 MG CAP PO SCH (22:45)
[2022-04-21] MEDS: Lactated Ringer's 1,000 ML IV SCH ×2 (01:14→16:22)
[2022-04-21] MEDS: Cefepime 2 GM in Sodium Chloride 0.9% 100 ML IVPB SCH ×3 (01:14→22:39)
[2022-04-21 05:07] LABS: #Eosinphils 0.1 thou/uL (0.0-0.7); #Lymphocytes 0.6 thou/uL (1.20-3.40); #Monocytes 0.3 thou/uL (0.11-0.59); #Neutrophils 4.3 thou/uL (1.40-6.50); %Basophils 0.3 % (0.0-1.0); %Eosinophils 2.3 % (0.0-10.0); %Lymphocytes 11.7 % (21.0-51.0); %Monocytes 6.1 % (0.0-10.0); %Neutrophils 79.6 % (42.0-75.0); Hemoglobin 12.5 g/dL (14.0-18.0); Mean Corpuscular HGB CONC 32.7 g/dL (32.0-36.0); Mean Platelet Volume 7.4 fL (7.4-10.4); Platelet Count 167 10x3/uL (130-400); RBC Distribution Width 13.3 % (11.5-14.5); Red Blood Cell (RBC) Count 3.79 mill/uL (4.70-6.10); White Blood Cell (WBC) Count 5.4 10x3/uL (4.8-10.8)
[2022-04-21 05:28] LABS: ALT (SGPT) 49 U/L (8-55); AST (SGOT) 121 U/L (5-34); Albumin 2.4 g/dL (3.4-4.8); Alkaline Phosphatase 408 U/L (40-110); Anion Gap 11 mmol/L (10-20); BUN (Urea Nitrogen) 24 mg/dL (8.4-25.7); Bilirubin, Total 5.7 mg/dL (0.2-1.2); Calc. Creatinine Clearance 82 mL/min (70-130); Calcium 8.2 mg/dL (7.8-10.44); Carbon Dioxide 27 mmol/L (23-31); Chloride 102 mmol/L (98-107); Estimated GFR 91; Globulin 3.3 g/dL (2.4-3.5); Glucose 90 mg/dL (83-110); Iron 30 ug/dL (65-175); Iron Binding Capacity, Total 151 mcg/dL (261-462); Potassium 3.4 mmol/L (3.5-5.1); Protein, Total 5.7 g/dL (5.8-8.1); Sodium 137 mmol/L (136-145)
[2022-04-21 05:42] LABS: Ferritin 526.56 ng/mL (22-322)
[2022-04-21 05:56] LABS: HBCM Index 0.07 S/CO (0-0.79); HBSAg Index 0.23 S/CO (0-0.99); Hep A IgM AB Non-Reactive (NonReactive); Hep A IgM S/CO 0.44 S/CO (0-0.79); Hep B Surf Ag Non-Reactive S/CO (NonReactive); Hep C IgG Ab Non-Reactive (NonReactive); Hep C Index 0.17 S/CO (0-0.79); Hepatitis B Core IgM Abs Non-Reactive (NonReactive)
[2022-04-21] MEDS: Levothyroxine Sodium 50 MCG TAB PO SCH (06:01)
[2022-04-21] MEDS ORDERED: Potassium Chloride 20 MEQ TAB PO SCH (08:00)
[2022-04-21] MEDS: Lisinopril 5 MG TAB PO SCH (08:43)
[2022-04-21] MEDS: HYDROcodone/Acetaminophen 10/325 mg Tablet PO PRN ×2 (08:44→16:18)
[2022-04-21] MEDS: Sertraline 100 MG TAB PO SCH (08:45)
[2022-04-21] MEDS: hydrALAZINE 25 MG TAB PO SCH ×3 (08:45→22:37)
[2022-04-21] MEDS: Donepezil HCl 10 MG TAB PO SCH (08:45)
[2022-04-21] MEDS: Amlodipine 10 MG TAB PO SCH (08:46)
[2022-04-21] MEDS: Hydrochlorothiazide 25 MG TAB PO SCH (08:46)
[2022-04-21] MEDS ORDERED: Iopamidol 30 ML ONE (11:57)
[2022-04-21] MEDS ORDERED: Indomethacin 50 MG SUPP ONE (12:08)
[2022-04-21] MEDS ORDERED: Rocuronium Bromide 10 MG/ML (10ML VIAL) ONE (12:53)
[2022-04-21] MEDS ORDERED: Ondansetron PF 4 MG/2 ML Vial ONE (12:53)
[2022-04-21] MEDS ORDERED: NEOSTIGMINE 3 MG/3 ML SYR 3 MG/3 ML SYRINGE ONE (12:53)
[2022-04-21] MEDS ORDERED: PROPOFOL 200 MG/20 ML VIAL ONE (12:53)
[2022-04-21] MEDS ORDERED: ePHEDrine 50 MG/ML VIAL ONE (12:53)
[2022-04-21] MEDS ORDERED: Promethazine HCl 25 MG/ML VIAL IM PRN (13:55)
[2022-04-21] MEDS ORDERED: Promethazine HCl 25 MG/ML VIAL IVPB PRN (13:55)
[2022-04-21] MEDS ORDERED: Ondansetron HCl/PF 4 MG/2 ML Vial IVP PRN (13:55)
[2022-04-21] MEDS ORDERED: Vancomycin 1.5 GRAM/300 ML BAG 1.5 GM in Premix Bag 1 BAG IVPB SCH (14:00)
[2022-04-21] MEDS ORDERED: FENTANYL 50 MCG/ML 1 ML VIAL ONE (14:09)
[2022-04-21] MEDS: ALPRAZolam 1 MG TAB PO SCH (22:38)
[2022-04-21] MEDS: Tamsulosin HCl 0.4 MG CAP PO SCH (22:38)
[2022-04-22 04:31] LABS: #Eosinphils 0.1 thou/uL (0.0-0.7); #Lymphocytes 0.8 thou/uL (1.20-3.40); #Monocytes 0.3 thou/uL (0.11-0.59); #Neutrophils 3.2 thou/uL (1.40-6.50); %Eosinophils 2.2 % (0.0-10.0); %Lymphocytes 18.6 % (21.0-51.0); %Monocytes 7.1 % (0.0-10.0); %Neutrophils 72.2 % (42.0-75.0); Hemoglobin 13.3 g/dL (14.0-18.0); Mean Corpuscular HGB CONC 32.5 g/dL (32.0-36.0); Mean Corpuscular Hemoglobin 33.3 pg (27.0-31.0); Mean Platelet Volume 7.6 fL (7.4-10.4); Platelet Count 172 10x3/uL (130-400); RBC Distribution Width 13.6 % (11.5-14.5); Red Blood Cell (RBC) Count 3.99 mill/uL (4.70-6.10); White Blood Cell (WBC) Count 4.5 10x3/uL (4.8-10.8)
[2022-04-22 04:59] LABS: ALT (SGPT) 52 U/L (8-55); AST (SGOT) 103 U/L (5-34); Albumin 2.5 g/dL (3.4-4.8); Alkaline Phosphatase 462 U/L (40-110); Anion Gap 12 mmol/L (10-20); BUN (Urea Nitrogen) 29 mg/dL (8.4-25.7); Bilirubin, Total 2.9 mg/dL (0.2-1.2); Calc. Creatinine Clearance 54 mL/min (70-130); Calcium 8.3 mg/dL (7.8-10.44); Carbon Dioxide 25 mmol/L (23-31); Chloride 104 mmol/L (98-107); Estimated GFR 66; Globulin 3.6 g/dL (2.4-3.5); Glucose 108 mg/dL (83-110); Potassium 4.1 mmol/L (3.5-5.1); Protein, Total 6.1 g/dL (5.8-8.1); Sodium 137 mmol/L (136-145)
[2022-04-22] MEDS: Levothyroxine Sodium 50 MCG TAB PO SCH (07:11)
[2022-04-22] MEDS: hydrALAZINE 25 MG TAB PO SCH ×3 (10:19→21:31)
[2022-04-22] MEDS: Hydrochlorothiazide 25 MG TAB PO SCH (10:19)
[2022-04-22] MEDS: Donepezil HCl 10 MG TAB PO SCH (10:19)
[2022-04-22] MEDS: Lisinopril 5 MG TAB PO SCH (10:20)
[2022-04-22] MEDS: Sertraline 100 MG TAB PO SCH (10:20)
[2022-04-22] MEDS: Amlodipine 10 MG TAB PO SCH (10:23)
[2022-04-22] MEDS: HYDROcodone/Acetaminophen 10/325 mg Tablet PO PRN ×2 (13:35→21:31)
[2022-04-22] MEDS: Cefepime 2 GM in Sodium Chloride 0.9% 100 ML IVPB SCH (13:36)
[2022-04-22] MEDS: ALPRAZolam 1 MG TAB PO SCH (21:30)
[2022-04-22] MEDS: Tamsulosin HCl 0.4 MG CAP PO SCH (21:31)
[2022-04-23] MEDS: Cefepime 2 GM in Sodium Chloride 0.9% 100 ML IVPB SCH (01:01)
[2022-04-23 04:29] LABS: #Eosinphils 0.2 thou/uL (0.0-0.7); #Lymphocytes 1.1 thou/uL (1.20-3.40); #Monocytes 0.4 thou/uL (0.11-0.59); #Neutrophils 3.7 thou/uL (1.40-6.50); %Basophils 0.6 % (0.0-1.0); %Lymphocytes 19.8 % (21.0-51.0); %Monocytes 7.2 % (0.0-10.0); %Neutrophils 69.3 % (42.0-75.0); Hemoglobin 12.7 g/dL (14.0-18.0); Mean Corpuscular HGB CONC 33.2 g/dL (32.0-36.0); Mean Corpuscular Hemoglobin 33.9 pg (27.0-31.0); Mean Platelet Volume 7.3 fL (7.4-10.4); Platelet Count 173 10x3/uL (130-400); RBC Distribution Width 13.7 % (11.5-14.5); Red Blood Cell (RBC) Count 3.75 mill/uL (4.70-6.10); White Blood Cell (WBC) Count 5.3 10x3/uL (4.8-10.8)
[2022-04-23 04:51] LABS: ALT (SGPT) 45 U/L (8-55); AST (SGOT) 72 U/L (5-34); Albumin 2.3 g/dL (3.4-4.8); Alkaline Phosphatase 395 U/L (40-110); Anion Gap 12 mmol/L (10-20); BUN (Urea Nitrogen) 27 mg/dL (8.4-25.7); Bilirubin, Total 2.2 mg/dL (0.2-1.2); Calc. Creatinine Clearance 47 mL/min (70-130); Calcium 8.1 mg/dL (7.8-10.44); Carbon Dioxide 23 mmol/L (23-31); Chloride 105 mmol/L (98-107); Estimated GFR 56; Globulin 3.5 g/dL (2.4-3.5); Glucose 90 mg/dL (83-110); Potassium 3.5 mmol/L (3.5-5.1); Protein, Total 5.8 g/dL (5.8-8.1); Sodium 136 mmol/L (136-145)
[2022-04-23] MEDS: HYDROcodone/Acetaminophen 10/325 mg Tablet PO PRN ×3 (05:22→23:32)
[2022-04-23] MEDS: Levothyroxine Sodium 50 MCG TAB PO SCH (05:22)
[2022-04-23] MEDS: Lisinopril 5 MG TAB PO SCH (10:38)
[2022-04-23] MEDS: Sertraline 100 MG TAB PO SCH (10:38)
[2022-04-23] MEDS: hydrALAZINE 25 MG TAB PO SCH ×3 (10:39→21:17)
[2022-04-23] MEDS: Hydrochlorothiazide 25 MG TAB PO SCH (10:39)
[2022-04-23] MEDS: Donepezil HCl 10 MG TAB PO SCH (10:39)
[2022-04-23] MEDS: Amlodipine 10 MG TAB PO SCH (10:39)
[2022-04-23] MEDS ORDERED: Cefepime 1 GM in Sodium Chloride 0.9% 100 ML IVPB SCH (12:00)
[2022-04-23] MEDS ORDERED: metroNIDAZOLE 500 MG TAB PO SCH (15:30)
[2022-04-23] MEDS ORDERED: FLU VACC QS2022-23(65YR UP)/PF 240 MCG/0.7 ML SYRINGE IM ONE (17:45)
[2022-04-23] MEDS: metroNIDAZOLE 500 MG TAB PO SCH (21:17)
[2022-04-23] MEDS: Tamsulosin HCl 0.4 MG CAP PO SCH (21:17)
[2022-04-23] MEDS: ALPRAZolam 1 MG TAB PO SCH (21:17)
[2022-04-24 04:20] LABS: #Eosinphils 0.2 thou/uL (0.0-0.7); #Monocytes 0.4 thou/uL (0.11-0.59); #Neutrophils 3.3 thou/uL (1.40-6.50); %Basophils 0.7 % (0.0-1.0); %Eosinophils 3.6 % (0.0-10.0); %Monocytes 7.2 % (0.0-10.0); %Neutrophils 67.6 % (42.0-75.0); Hemoglobin 12.8 g/dL (14.0-18.0); Mean Corpuscular HGB CONC 31.9 g/dL (32.0-36.0); Mean Corpuscular Hemoglobin 32.4 pg (27.0-31.0); Mean Platelet Volume 7.3 fL (7.4-10.4); Platelet Count 182 10x3/uL (130-400); RBC Distribution Width 13.7 % (11.5-14.5); Red Blood Cell (RBC) Count 3.94 mill/uL (4.70-6.10); White Blood Cell (WBC) Count 4.9 10x3/uL (4.8-10.8)
[2022-04-24 04:41] LABS: ALT (SGPT) 39 U/L (8-55); AST (SGOT) 58 U/L (5-34); Albumin 2.4 g/dL (3.4-4.8); Alkaline Phosphatase 379 U/L (40-110); Anion Gap 11 mmol/L (10-20); BUN (Urea Nitrogen) 24 mg/dL (8.4-25.7); Bilirubin, Total 2.2 mg/dL (0.2-1.2); Calc. Creatinine Clearance 49 mL/min (70-130); Calcium 8.2 mg/dL (7.8-10.44); Carbon Dioxide 27 mmol/L (23-31); Chloride 103 mmol/L (98-107); Estimated GFR 59; Globulin 3.6 g/dL (2.4-3.5); Glucose 95 mg/dL (83-110); Potassium 3.3 mmol/L (3.5-5.1); Sodium 138 mmol/L (136-145)
[2022-04-24] MEDS: Levothyroxine Sodium 50 MCG TAB PO SCH (05:31)
[2022-04-24] MEDS: Amlodipine 10 MG TAB PO SCH (09:15)
[2022-04-24] MEDS: Hydrochlorothiazide 25 MG TAB PO SCH (09:15)
[2022-04-24] MEDS: Donepezil HCl 10 MG TAB PO SCH (09:15)
[2022-04-24] MEDS: Sertraline 100 MG TAB PO SCH (09:16)
[2022-04-24] MEDS: hydrALAZINE 25 MG TAB PO SCH ×3 (09:16→21:06)
[2022-04-24] MEDS: metroNIDAZOLE 500 MG TAB PO SCH ×3 (09:16→21:06)
[2022-04-24] MEDS: Lisinopril 5 MG TAB PO SCH (09:16)
[2022-04-24] MEDS ORDERED: Potassium Chloride 20 MEQ TAB PO SCH (10:15)
[2022-04-24] MEDS: HYDROcodone/Acetaminophen 10/325 mg Tablet PO PRN (16:05)
[2022-04-24] MEDS: Tamsulosin HCl 0.4 MG CAP PO SCH (21:06)
[2022-04-24] MEDS: ALPRAZolam 1 MG TAB PO SCH (21:06)
[2022-04-25] MEDS: HYDROcodone/Acetaminophen 10/325 mg Tablet PO PRN ×2 (01:00→12:53)
[2022-04-25 03:51] LABS: #Eosinphils 0.2 thou/uL (0.0-0.7); #Lymphocytes 1.2 thou/uL (1.20-3.40); #Monocytes 0.4 thou/uL (0.11-0.59); #Neutrophils 3.3 thou/uL (1.40-6.50); %Basophils 0.1 % (0.0-1.0); %Eosinophils 3.3 % (0.0-10.0); %Lymphocytes 24.6 % (21.0-51.0); %Monocytes 7.4 % (0.0-10.0); %Neutrophils 64.5 % (42.0-75.0); Hemoglobin 12.8 g/dL (14.0-18.0); Mean Corpuscular HGB CONC 31.8 g/dL (32.0-36.0); Mean Corpuscular Hemoglobin 32.3 pg (27.0-31.0); Mean Platelet Volume 7.2 fL (7.4-10.4); Platelet Count 190 10x3/uL (130-400); RBC Distribution Width 13.6 % (11.5-14.5); Red Blood Cell (RBC) Count 3.96 mill/uL (4.70-6.10); White Blood Cell (WBC) Count 5.1 10x3/uL (4.8-10.8)
[2022-04-25 04:11] LABS: ALT (SGPT) 37 U/L (8-55); AST (SGOT) 49 U/L (5-34); Albumin 2.5 g/dL (3.4-4.8); Alkaline Phosphatase 370 U/L (40-110); Anion Gap 12 mmol/L (10-20); BUN (Urea Nitrogen) 21 mg/dL (8.4-25.7); Bilirubin, Total 2.1 mg/dL (0.2-1.2); Calc. Creatinine Clearance 58 mL/min (70-130); Calcium 8.2 mg/dL (7.8-10.44); Carbon Dioxide 27 mmol/L (23-31); Chloride 103 mmol/L (98-107); Estimated GFR 72; Globulin 3.6 g/dL (2.4-3.5); Glucose 95 mg/dL (83-110); Potassium 3.6 mmol/L (3.5-5.1); Protein, Total 6.1 g/dL (5.8-8.1); Sodium 138 mmol/L (136-145)
[2022-04-25] MEDS: Levothyroxine Sodium 50 MCG TAB PO SCH (05:55)
[2022-04-25 09:04] VITALS: BP 173/76; TEMP 97.6
[2022-04-25] MEDS: metroNIDAZOLE 500 MG TAB PO SCH (10:25)
[2022-04-25] MEDS: Sertraline 100 MG TAB PO SCH (10:25)
[2022-04-25] MEDS: hydrALAZINE 25 MG TAB PO SCH (10:25)
[2022-04-25] MEDS: Lisinopril 5 MG TAB PO SCH (10:26)
[2022-04-25] MEDS: Amlodipine 10 MG TAB PO SCH (10:26)
[2022-04-25] MEDS: Hydrochlorothiazide 25 MG TAB PO SCH (10:26)
[2022-04-25] MEDS: Donepezil HCl 10 MG TAB PO SCH (10:26)
[2022-04-25 15:37] LABS: ANA Symphony (Qualitative) Negative (Negative); ANA Symphony (Quantitative) 0.4 Ratio (< 0.7 Negative); EliA Vaculitis New Method **** NEW METHOD ****
== END 2022-04-25 13:13 | disposition home or self-care (01) | DRG 872 ==
LOC: ERS 10:36 → ERHOLD 15:02 → OBSVTOIN 04-20 14:29 → 2NO 04-20 17:14
PROVIDERS: ADMIT Family Medicine; ATTEND Family Medicine
PROC: 0F798ZZ Dilation of Common Bile Duct, Via Natural or Artificial Opening Endoscopic (ICD-10-PCS; principal; 2022-04-21)
DX: A41.9 Sepsis, unspecified organism (principal); K80.30 Calculus of bile duct with cholangitis, unspecified, without obstruction; I47.20 Ventricular tachycardia, unspecified; M62.82 Rhabdomyolysis; Z20.822 Contact with and (suspected) exposure to COVID-19; I25.10 Atherosclerotic heart disease of native coronary artery without angina pectoris; E03.9 Hypothyroidism, unspecified; F41.9 Anxiety disorder, unspecified; E86.0 Dehydration; I10 Essential (primary) hypertension; E87.6 Hypokalemia; Z79.899 Other long term (current) drug therapy; Z79.890 Hormone replacement therapy; I25.2 Old myocardial infarction; Z95.5 Presence of coronary angioplasty implant and graft; Z90.49 Acquired absence of other specified parts of digestive tract; Z86.73 Personal history of transient ischemic attack (TIA), and cerebral infarction without residual deficits
CPT/HCPCS: 36415; 36416; 70450; 70496; 70498; 71045; 72100; 72131; 74177; 74181; 74330; 80053; 80074; 81003; 81015; 82248; 82390; 82550; 82553; 82728; 83516; 83540; 83550; 83605; 83880; 84134; 84443; 84484; 85025; 85610; 85730; 86015; 86038; 86225; 87040; 87076; 87086; 87149; 93005; 93010; 93306; 94760; 96374; 96375; C1725; G0378; J0692; J2405; J2704; J3010; J3370; J3490; J7120; J7643; Q9967